=== PATIENT | female | born 1965 | race American Indian/Alaskan Native ===

== ENCOUNTER 2017-09-26 08:25 | Emergency (ER) | payer SELFPAY ==
[2017-09-26] MEDS ORDERED: DELTASONE PO ONE (10:15)
--- NOTE | 2017-09-26 10:29 | Emergency Department Report ---
ED Rash HPI - HPI Chief Complaint: Skin Rash Stated Complaint: RASH UNDER ARMPITS,SPREADING Time Seen by Provider: 09/26/17 10:14 Duration: 3 Days Location: Other (armpits) Suspected Cause: Other (deodorant) Rash Symptoms: Yes Itching, Yes Peeling, No Facial Swelling, No Tongue/Oral Swelling, No Breathing Difficulties, No Choking Sensation, No Wheezing/Dyspnea, No Blistering, No Fever, No Lightheaded, No Malaise, No Myalgias Severity: mild Other History: Patient is a 52-year-old female presents to ED complaining of bilateral arm pH and an redness 3 days. Patient states she got her roommate that used her deodorant last week. She noticed after she used to see started to have some itching, redness to both her armpits. Patient states H and is currently worse. She denies fever, chills or any other problems ED Review of Systems ROS: Stated complaint: RASH UNDER ARMPITS,SPREADING Other details as noted in HPI Constitutional: denies: chills, fever Eyes: denies: eye pain, eye discharge, vision change ENT: denies: ear pain, throat pain Respiratory: denies: cough, shortness of breath, wheezing Cardiovascular: denies: chest pain, palpitations Endocrine: no symptoms reported Gastrointestinal: denies: abdominal pain, nausea, diarrhea Genitourinary: denies: urgency, dysuria, discharge Musculoskeletal: denies: back pain, joint swelling, arthralgia Skin: pruritus. denies: rash, lesions Neurological: denies: headache, weakness, paresthesias Psychiatric: denies: anxiety, depression Hematological/Lymphatic: denies: easy bleeding, easy bruising ED Past Medical Hx - Past Medical History Previous Medical History?: No - Surgical History Past Surgical History?: No - Social History Smoking Status: Current Every Day Smoker Substance Use Type: None - Medications Home Medications: Home Medications Medication Instructions Recorded Confirmed Last Taken Type Clindamycin [Clindamycin CAP] 300 mg PO Q8H #20 cap 02/22/15 Unknown Rx Cephalexin [Keflex] 500 mg PO BID #10 capsule 09/26/17 Unknown Rx Hydrocortisone 1% [Hydrocortisone 1 applicatio TP TID #1 tube 09/26/17 Unknown Rx 1% CREAM] diphenhydrAMINE [Benadryl CAP] 25 mg PO QHS PRN #30 capsule 09/26/17 Unknown Rx predniSONE [Deltasone] 20 mg PO DAILY #4 tablet 09/26/17 Unknown Rx Rash Exam - Exam General: Vital signs noted. No distress. Alert and acting appropriately. HEENT: No Periorbital Edema, No Conjuctival Injection, No Chemosis, No Perioral Edema, No Tongue Edema, No Uvular Edema, No Compromised Airway, No Drooling Lungs: Yes Good Air Exchange (Normal Breath Sounds), No Wheezes, No Ronchi, No Stridor, No Cough, No Labored Respirations, No Retractions, No Use of Accessory Muscles, No Other Abnormal Lung Sounds Heart: Yes Regular, No Murmur Skin: Yes Urticarial Rash, Yes Maculopapular Rash, Yes Erythema, No Morbilliform rash, No Bulla(e), No Excoriations, No Weeping, No Tenderness, No Edema, No Encrustations, No Other Other: Positive: Abdomen Normal, Neurologic Normal, Musculoskeletal Normal ED Course Vital Signs 09/26/17 08:51 Temperature 98.3 F Pulse Rate 97 H Respiratory 18 Rate Blood Pressure 140/97 O2 Sat by Pulse 100 Oximetry ED Medical Decision Making - Medical Decision Making 52-year-old female presents with bilateral axillary dermatitis ED course: Patient received steroids in the ED I discussed the patient that she will be going home on a couple of days steroids , Benadryl for itching and topical steroid. Discussed the patient to avoid using Deodorant for the next couple of days Discussed to follow up with primary care physician Vital signs are normal patient is in no acute distress Critical care attestation.: If time is entered above; I have spent that time in minutes in the direct care of this critically ill patient, excluding procedure time. ED Disposition Clinical Impression: Urticaria Dermatitis due to cosmetics Qualifiers: Contact dermatitis type: irritant Qualified Code(s): L24.3 - Irritant contact dermatitis due to cosmetics Disposition: DC-01 TO HOME OR SELFCARE Is pt being admited?: No Does the pt Need Aspirin: No Condition: Stable Instructions: Contact Dermatitis (ED), Urticaria (ED) Additional Instructions: Make sure to follow up with the primary care physician as discussed. Take all your medications as you've been prescribed. If you have any worsening symptoms or develop new symptoms please return to ED immediately. Prescriptions: diphenhydrAMINE [Benadryl CAP] 25 mg PO QHS PRN #30 capsule PRN Reason: Itching Cephalexin [Keflex] 500 mg PO BID #10 capsule Hydrocortisone 1% [Hydrocortisone 1% CREAM] 1 applicatio TP TID #1 tube predniSONE [Deltasone] 20 mg PO DAILY #4 tablet Referrals: [facility] [Outside] - 3-5 Days [facility] [Outside] - 3-5 Days [facility] [Outside] - 3-5 Days PRIMARY CARE, [Primary Care Provider] - 3-5 Days Forms: Work/School Release Form(ED) Time of Disposition: 10:58
[2017-09-26 10:49] VITALS: BP 143/85
== END 2017-09-26 11:08 | disposition home or self-care (01) ==
LOC: ED 08:25
DX: L24.3 Irritant contact dermatitis due to cosmetics (principal); L50.9 Urticaria, unspecified; F17.200 Nicotine dependence, unspecified, uncomplicated
CPT/HCPCS: 99282; J7512

== ENCOUNTER 2018-09-25 13:25 | Outpatient (CLI) | payer BC ==
--- NOTE | 2018-09-25 21:51 | Vascular Lab Report ---
PROCEDURE: VL VENOUS DUPLEX LE BILAT HISTORY: PAIN, SWELLING, FINDINGS: Real-time ultrasound of the right leg and left leg was performed using grayscale and color Doppler images. These images demonstrate no evidence of deep venous thrombus in the right or left common femoral vein , superficial femoral vein, popliteal vein or posterior tibial vein. IMPRESSION: No DVT in either leg This document is electronically signed by Joel Zuniga MD., September 25 2018 09:49:06 PM ET
== END 2018-09-25 13:26 | disposition home or self-care (01) ==
LOC: VAS 13:25
PROVIDERS: ATTEND General Practice
DX: M79.661 Pain in right lower leg (principal); M79.662 Pain in left lower leg; R60.0 Localized edema
CPT/HCPCS: 93970

== ENCOUNTER 2018-11-03 11:03 | Emergency (ER) | payer BC ==
--- NOTE | 2018-11-03 11:23 | Emergency Department Report ---
Blank Doc - Documentation Documentation: This is a 53-year-old female that presents with URI symptoms. Stated has chest pain only during coughing otherwise denies any chest pain. This initial assessment/diagnostic orders/clinical plan/treatment(s) is/are subject to change based on patient's health status, clinical progression and re- assessment by fellow clinical providers in the ED. Further treatment and workup at subsequent clinical providers discretion. Patient/guardians urged not to elope from the ED as their condition may be serious if not clinically assessed and managed. Initial orders include: 1- Patient sent to [facility] for further evaluation and treatment 2- xray
[2018-11-03 11:24] VITALS: BP 146/96
--- NOTE | 2018-11-03 12:03 | XRay Report ---
ROUTINE CHEST, TWO VIEWS: HISTORY: Cough. The trachea, heart, mediastinal contour, lung corona and bony thorax are unremarkable. IMPRESSION: Unremarkable chest x-ray.
[2018-11-03] MEDS ORDERED: ZITHROMAX PO ONE (12:54)
[2018-11-03] MEDS ORDERED: TYLENOL/CODEINE PO ONE (12:54)
--- NOTE | 2018-11-03 13:00 | Emergency Department Report ---
Minor Respiratory - HPI Chief Complaint: Upper Respiratory Infection Stated Complaint: CHEST PAIN/SOB Time Seen by Provider: 11/03/18 11:20 Minor Respiratory: Yes Able to Tolerate Fluids, Yes Cough, Yes Sick Contacts, No Rhinorrhea, No Sore Throat, No Ear Pain, No Hemoptysis, No Chest Pain, No Shortness of Breath Other History: 53-year-old female who presents to ED complaining of cough and congestion for the past 2 weeks. [place] a lot of people. Patient states that is getting worse this past couple of days. She denies fevers/chills she describes cough is productive for green ED Review of Systems ROS: Stated complaint: CHEST PAIN/SOB Other details as noted in HPI Comment: All other systems reviewed and negative ED Past Medical Hx - Past Medical History Previous Medical History?: No - Surgical History Past Surgical History?: No - Social History Smoking Status: Current Every Day Smoker Substance Use Type: Alcohol, Marijuana - Medications Home Medications: Home Medications Medication Instructions Recorded Confirmed Last Taken Type Clindamycin [Clindamycin CAP] 300 mg PO Q8H #20 cap 02/22/15 Unknown Rx Cephalexin [Keflex] 500 mg PO BID #10 capsule 09/26/17 Unknown Rx Hydrocortisone 1% [Hydrocortisone 1 applicatio TP TID #1 tube 09/26/17 Unknown Rx 1% CREAM] diphenhydrAMINE [Benadryl CAP] 25 mg PO QHS PRN #30 capsule 09/26/17 Unknown Rx predniSONE [Deltasone] 20 mg PO DAILY #4 tablet 09/26/17 Unknown Rx Acetamin/Codeine 120-12Mg/5 ml 5 ml PO TID #80 ml 11/03/18 Unknown Rx [Tylenol/Codeine 120-12 mg/5 ml] Azithromycin [Zithromax TAB] 250 mg PO DAILY #4 tablet 11/03/18 Unknown Rx Minor Respiratory Exam - Exam General: Vital signs noted. No distress. Alert and acting appropriately. HEENT: Yes Moist Mucous Membranes, No Pharyngeal Erythema, No Pharyngeal Exudates, No Rhinorrhea, No Conjuctival Injection, No Frontal Tenderness, No Maxillary Tenderness Ear: Neither TM Bulge, Neither TM Erythema, Neither EAC Pain, Neither EAC Discharge Neck: Yes Supple, No Adenopathy Lungs: Yes Good Air Exchange, No Wheezes, No Ronchi, No Stridor, No Cough, No Labored Respirations, No Retractions, No Use of Accessory Muscles, No Other Abnormal Lung Sounds Heart: Yes Regular, No Murmur Abdomen: Yes Normal Bowel Sounds, No Tenderness, No Peritoneal Signs Skin: No Rash, No Edema Neurologic: Alert and oriented, no deficits. Musculoskeletal: Unremarkable. ED Course Vital Signs 11/03/18 11:22 Temperature 98.3 F Pulse Rate 90 Respiratory 16 Rate Blood Pressure 146/96 O2 Sat by Pulse 100 Oximetry ED Medical Decision Making - Medical Decision Making 53-year-old female presents with upper respiratory infection. Chest x-ray shows no signs of pneumonia or any other acute cardiopulmonary assess. Discussed findings with the patient. Patient received Tylenol with Codeine in ED. Vital signs are normal patient is in no acute or respiratory distress. Discussed the patient follow up with primary care physician. Critical care attestation.: If time is entered above; I have spent that time in minutes in the direct care of this critically ill patient, excluding procedure time. ED Disposition Clinical Impression: Upper respiratory infection Disposition: - TO HOME OR SELFCARE Is pt being admited?: No Does the pt Need Aspirin: No Condition: Stable Instructions: Cold Symptoms (ED), Upper Respiratory Infection (ED), Acute Bronchitis (ED) Additional Instructions: Make sure to follow up with the primary care physician as discussed. Take all your medications as you've been prescribed. If you have any worsening symptoms or develop new symptoms please return to ED immediately. Prescriptions: Acetamin/Codeine 120-12Mg/5 ml [Tylenol/Codeine 120-12 mg/5 ml] 5 ml PO TID #80 ml Azithromycin [Zithromax TAB] 250 mg PO DAILY #4 tablet Referrals: GENA EID MD [Primary Care Provider] - 3-5 Days Forms: Accompanied Note, Work/School Release Form(ED) Time of Disposition: 12:59
== END 2018-11-03 13:28 | disposition home or self-care (01) ==
LOC: ED 11:03
DX: J06.9 Acute upper respiratory infection, unspecified (principal); F17.200 Nicotine dependence, unspecified, uncomplicated; F12.10 Cannabis abuse, uncomplicated
CPT/HCPCS: 71046; 99283